=== PATIENT | male | born 1995 | race Two or more races ===

== ENCOUNTER 2020-04-04 19:17 | Emergency (ER) | payer BC, OTHER ==
[~2020-04-04] VITALS: Ht 170.2 cm; Wt 73.5 kg
[2020-04-04] MEDS ORDERED: KETOROLAC TROMETHAMINE INJ 30 MG/ML VIAL IV ONE (20:00)
[2020-04-04] MEDS ORDERED: ACETAMINOPHEN 325 MG TABLET PO ONE (20:00)
[2020-04-04] MEDS ORDERED: IV NS 0.9% 1,000 ML BAG IV ONE (20:00)
--- NOTE | 2020-04-04 20:21 | NUR ---
BIBS FROM HOME TO ER BED 7. AAOX4. NOT IN RESP DISTRESS. AMBULATORY. CAME IN FOR LLQ ABDOMINAL PAIN SINCE THIS MORNING. PAIN IS RATE 6/10 INTERMITENT IN NATURE. PT ALSO REPORTS THAT HE ALSO NOTED BRIGHT RED BLOOD WHEN HE WIPE HIMSELF AFTER HE HAD A BM. DENIES N/V/D. MARY DOVER AT BEDSIDE FOR EVAL. ORDERS RECEIVED NOTED AND CARRIED OUT. IV LINE ESTABLISHED ON L AC 18G. BLOOD DRAWN AND GIVEN TO HSPT TUTOR AT BEDSIDE. WILL CONTINUE TO MONITOR PT.
[2020-04-04] MEDS ORDERED: ACETAMINOPHEN 325 MG TABLET ONE (20:22)
[2020-04-04] MEDS ORDERED: KETOROLAC TROMETHAMINE INJ 30 MG/ML VIAL ONE (20:22)
[2020-04-04 20:32] LABS: BASOPHILS % (AUTO) 0.4 % (0.0-2.0); EOSINOPHILS % (AUTO) 0.3 % (0.0-6.0); HEMATOCRIT 47 % (39-51); HEMOGLOBIN 15.8 g/dL (13.5-17.5); LYMPHOCYTES # (AUTO) 0.4 /CMM (0.8-4.8); LYMPHOCYTES % (AUTO) 4.1 % (20.0-44.0); MEAN CORPUSCULAR HGB CONC 33 g/dl (31.0-36.0); MEAN CORPUSCULAR VOLUME 92 fL (80-96); MONOCYTES # (AUTO) 0.7 /CMM (0.1-1.30); MONOCYTES % (AUTO) 7.2 % (2.0-12.0); NEUTROPHILS # (AUTO) 8.3 /CMM (1.8-8.9); PLATELET COUNT (AUTO) 210 /CMM (150-450); RED BLOOD CELL COUNT(AUTO) 5.13 MIL/uL (4.5-6.0); WHITE BLOOD COUNT (AUTO) 9.4 K/uL (4.3-11.0)
[2020-04-04 20:35] LABS: APPEARANCE,URINE Clear (CLEAR); BILIRUBIN,URINE Negative (NEGATIVE); BLOOD, URINE Negative Ery/uL (NEGATIVE); COLOR,URINE Yellow (YELLOW); KETONES,URINE Negative (NEGATIVE); LEUKOCYTE ESTERASE ,URINE Negative (NEGATIVE); NITRITE, URINE Negative (NEGATIVE); PH,URINE 8.5 (5.0-8.0); PROTEIN,URINE Negative (NEGATIVE); UGLUCOSE Negative (NEGATIVE); UROBILINOGEN,URINE 0.2 EU/dL (0.2)
[2020-04-04 20:46] LABS: OCCULT BLOOD STOOL POSITIVE (NEGATIVE)
[2020-04-04 20:52] LABS: ALBUMIN 4.6 g/dL (3.4-5.0); BILIRUBIN,DIRECT 0.1 mg/dL (0.0-0.2); BILIRUBIN,TOTAL 0.8 mg/dL (0.2-1.0); CALCIUM, SERUM 9.4 mg/dL (8.5-10.1); POTASSIUM 3.4 mmol/L (3.5-5.1); TOTAL PROTEIN, SERUM 8.2 g/dL (6.4-8.2)
[2020-04-04] MEDS ORDERED: IOHEXOL-300 100 ML VIAL IV ONE (21:09)
[2020-04-04] MEDS ORDERED: IV NS 0.9% 250 ML IV ONE (21:09)
[2020-04-04] MEDS ORDERED: CT SWABBABLE VALVE TRANS SET 1 EA INFUS.SET MC ONE (21:09)
--- NOTE | 2020-04-04 22:11 | NUR ---
PT OK TO BE DISCHARGED HOME PER FREDA HERNANDEZ. IV removed. Catheter intact and site benign. Pressure and 4x4 applied to site. No bleeding noted.Patient discharged to home in stable condition. Written and verbal after care instructions given. Patient verbalizes understanding of instruction.Patient is awake and alert to self, day, and place. PT ambulatory with a steady gait
[2020-04-04 22:19] VITALS: BP 125/74
== END 2020-04-04 22:20 | disposition home or self-care (01) ==
LOC: ER 19:19
DX: A09 Infectious gastroenteritis and colitis, unspecified (principal); R00.0 Tachycardia, unspecified
CPT/HCPCS: 36415; 74177; 80048; 80076; 81001; 82272; 83690; 85025; 87086; 96361; 96374; 99285; J1885; J7030; J7050; Q9967; 81000-TC